=== PATIENT | female | born 1990 | race Caucasian/White ===

== ENCOUNTER 2016-12-24 14:41 | Emergency (ER) | payer BC ==
[~2016-12-24] VITALS: Ht 163.8 cm; Wt 100.3 kg
[2016-12-24 14:47] VITALS: BP 131/85
[2016-12-24] MEDS ORDERED: IBUPROFEN 400 MG TAB ONE (14:59)
--- NOTE | 2016-12-24 17:28 | NUR ---
Padmini dobbs in ED - 12/24/16 at 1733 by [email or web address] STELLA CAMARGO EVALUATING PT AT BEDSIDE.
--- NOTE | 2016-12-24 17:32 | NUR ---
6F BIB SELF C/O FEVER AND HEADACHE X 2 DAYS; PT STATES NO TRAUMA OR INJURY TO HEAD AT THIS TIME. PT STATES HAS RECENT UTI, WENT TO SEE PCP AND GIVEN CIPRO 500 MG HX: NONE RX: CIPRO 500MG. DENIES N/V/D; SKIN IS PINK/WARM/DRY; AAOX4 WITH EVEN AND STEADY GAIT; LUNGS CLEAR BL; HR EVEN AND REGULAR; PT DENIES ANY CP, SOB, OR COUGH AT THIS TIME; PATIENT STATES PAIN OF 8/10 AT THIS TIME; PATIENT POSITIONED FOR COMFORT; HOB ELEVATED; BEDRAILS UP X2; BED DOWN. ER MD MADE AWARE OF PT STATUS.
--- NOTE | 2016-12-24 17:32 | NUR ---
Patient ambulated to bed 4. RN evaluating patient at bedside.
--- NOTE | 2016-12-24 17:33 | NUR ---
ER MD DR CAMARGO EVALUATING PT AT BEDSIDE.
[2016-12-24] MEDS ORDERED: NACL 0.9% 1,000 ML IV SCH (17:34)
[2016-12-24] MEDS ORDERED: ONDANSETRON 4 MG/2 ML VIAL IVP ONE (17:35)
[2016-12-24] MEDS ORDERED: cefTRIAXone 1,000 MG in DEXT 5% MINI-BAG PLUS 50 ML IV ONE (17:35)
[2016-12-24] MEDS ORDERED: MORPHINE SULFATE 4 MG/ML SYR IVP ONE (17:35)
[2016-12-24] MEDS ORDERED: cefTRIAXone 1,000 MG VIAL ONE (17:51)
[2016-12-24 18:07] LABS: BASOPHILS # (AUTO) 0.1 K/uL (0.00-0.22); BASOPHILS % (AUTO) 1.3 % (0.0-2.0); EOSINOPHILS # (AUTO) 0.1 K/uL (0-0.4); EOSINOPHILS % (AUTO) 1.6 % (0.0-4.0); HEMOGLOBIN 12.7 g/dL (12.0-16.0); LYMPHOCYTES # (AUTO) 1.3 K/uL (2.5-16.5); LYMPHOCYTES % (AUTO) 16.3 % (20.5-51.1); MEAN CORPUSCULAR HEMOGLOBIN 27 pg (27-31); MEAN CORPUSCULAR HGB CONC 33 g/dL (33-37); MEAN CORPUSCULAR VOLUME 84 fL (80-94); MONOCYTES # (AUTO) 0.9 K/uL (0.8-1.0); MONOCYTES % (AUTO) 11.1 % (1.7-9.3); NEUTROPHILS # (AUTO) 5.8 K/uL (1.8-7.7); NEUTROPHILS % (AUTO) 69.7 % (42.2-75.2); PLATELET COUNT (AUTO) 262 K/uL (140-450); RED BLOOD CELL COUNT(AUTO) 4.65 MIL/uL (4.20-5.40); RED CELL DISTRIBUTION WIDTH 13.7 % (11.6-13.7); WHITE BLOOD COUNT (AUTO) 8.2 K/uL (4.8-10.8)
[2016-12-24 18:13] LABS: APPEARANCE,URINE CLEAR (CLEAR); BILIRUBIN,URINE NEGATIVE (NEGATIVE); BLOOD, URINE 2+ (NEGATIVE); COLOR,URINE YELLOW (YELLOW); LEUKOCYTE ESTERASE ,URINE TRACE (NEGATIVE); NITRITE, URINE POSITIVE (NEGATIVE); PROTEIN,URINE TRACE (NEGATIVE); UGLUCOSE NEGATIVE (NEGATIVE)
[2016-12-24 18:16] LABS: ANION GAP 13.6 (8-16); CALCIUM 7.9 mg/dL (8.5-10.1); CARBON DIOXIDE 26.3 mmol/L (21-32); CREATININE 0.8 mg/dL (0.6-1.3); POTASSIUM 3.9 mmol/L (3.5-5.1)
[2016-12-24 18:20] LABS: AMPHETAMINE, URINE NEG. ng/ml (NEG <=1000); BARBITURATE, URINE NEG. ng/ml (NEG <=200); BENZODIAZEPINE, URINE NEG. ng/mL (NEG <=200); CANNABINOID, URINE POS. ng/mL (NEG <=50); COCAINE, URINE NEG. ng/mL (NEG <=300); OPIATE, URINE NEG. ng/mL (NEG <=2000); PHENCYCLIDINE SCREEN,URINE NEG. ng/mL (NEG <=25)
[2016-12-24 18:21] LABS: BACTERIA,URINE 2+ /HPF (None Seen); MUCUS,URINE 3+ /LPF (None Seen)
[2016-12-24 18:23] LABS: ALBUMIN 3.6 g/dL (3.4-5.0); TOTAL BILIRUBIN 0.3 mg/dL (0.0-1.0); TOTAL PROTEIN, SERUM 7.7 g/dL (6.4-8.2)
--- NOTE | 2016-12-24 18:55 | NUR ---
Patient discharged with v/s stable. Written and verbal after care instructions given and explained. Patient alert, oriented and verbalized understanding of instructions. Ambulatory with steady gait. All questions addressed prior to discharge. ID band removed. Patient advised to follow up with PMD. Rx of TYLENOL & DOXYCYCLINE given. Patient educated on indication of medication including possible reaction and side effects. Opportunity to ask questions provided and answered.
[2016-12-24 19:00] VITALS: BP 129/60
== END 2016-12-24 18:55 | disposition home or self-care (01) ==
LOC: MED 14:41
DX: G44.209 Tension-type headache, unspecified, not intractable (principal); N30.90 Cystitis, unspecified without hematuria; F12.10 Cannabis abuse, uncomplicated
CPT/HCPCS: 36415; 80053; 80305; 81001; 81025; 82150; 83690; 84703; 85025; 87086; 96365; 96375; 99284; J0696; J2270; J2405; J7030; J7060

== ENCOUNTER 2019-02-27 11:18 | Emergency (ER) | payer BC ==
[~2019-02-27] VITALS: Ht 162.6 cm; Wt 110.8 kg
[2019-02-27 11:22] VITALS: BP 142/67
--- NOTE | 2019-02-27 11:40 | NUR ---
C/O BILATERAL LOWER BACK PAIN X 1 DAY. PAIN /. ADDS HEADACHE X THIS AM. DENIES DYSURIA, FREQUENCY, OR URGENCY. DENIES INJURY OR TRUAMA. PATIENT STATES SHE IS CURRENTLY ON HER MENSTRUAL CYCLE. VSS. AA0X4. BED IS DOWN, LOCKED, BED RAIL X 1, ERMD TO SEE PT. PMH- DENIES
--- NOTE | 2019-02-27 11:50 | NUR ---
DR RAMIREZ AT BEDSIDE
[2019-02-27] MEDS ORDERED: NACL 0.9% 1,000 ML IV ONE (12:20)
[2019-02-27] MEDS ORDERED: KETOROLAC 30 MG/ML VIAL IVP ONE (12:20)
--- NOTE | 2019-02-27 12:32 | NUR ---
LABS DRAWN BEDSIDE AND TORADOL ADMINISTERED ORDERED
[2019-02-27 12:49] LABS: BASOPHILS # (AUTO) 0.1 K/uL (0.00-0.22); BASOPHILS % (AUTO) 0.6 % (0.0-2.0); EOSINOPHILS # (AUTO) 0.2 K/uL (0-0.4); EOSINOPHILS % (AUTO) 2.6 % (0.0-4.0); HEMATOCRIT 37.4 % (36-48); HEMOGLOBIN 12.2 g/dL (12.0-16.0); LYMPHOCYTES # (AUTO) 2.8 K/uL (2.5-16.5); LYMPHOCYTES % (AUTO) 30.5 % (20.5-51.1); MEAN CORPUSCULAR HEMOGLOBIN 27 pg (27-31); MEAN CORPUSCULAR HGB CONC 33 g/dL (33-37); MEAN CORPUSCULAR VOLUME 81.4 fL (80-94); MONOCYTES # (AUTO) 0.5 K/uL (0.8-1.0); MONOCYTES % (AUTO) 5.1 % (1.7-9.3); NEUTROPHILS # (AUTO) 5.6 K/uL (1.8-7.7); NEUTROPHILS % (AUTO) 61.2 % (42.2-75.2); PLATELET COUNT (AUTO) 313 K/uL (140-450); RED BLOOD CELL COUNT(AUTO) 4.59 MIL/uL (4.20-5.40); RED CELL DISTRIBUTION WIDTH 14.8 % (11.6-13.7); WHITE BLOOD COUNT (AUTO) 9.2 K/uL (4.8-10.8)
--- NOTE | 2019-02-27 12:50 | NUR ---
VSS. AA0X4. LIGHTS TURNED OFF FOR PT COMFORT
[2019-02-27 12:55] LABS: ANION GAP 9.9 (8-16); CARBON DIOXIDE 29.7 mmol/L (21-32); CREATININE 0.7 mg/dL (0.6-1.3); POTASSIUM 3.6 mmol/L (3.5-5.1)
[2019-02-27 13:53] VITALS: BP 136/84
--- NOTE | 2019-02-27 13:53 | NUR ---
Patient discharged with v/s stable. Written and verbal after care instructions given and explained. Patient verbalized understanding. Ambulatory with steady gait. All questions addressed prior to discharge. Advised to follow up with PMD. PT GIVEN EXCUSE FOR WORK PT INSTRUCTED TO TAKE OTC IBUPROFEN AND TYLENOL FOR PAIN
== END 2019-02-27 13:53 | disposition home or self-care (01) ==
LOC: MED 11:18
DX: R51 Headache (principal); M54.9 Dorsalgia, unspecified; R10.9 Unspecified abdominal pain; F17.210 Nicotine dependence, cigarettes, uncomplicated; F12.10 Cannabis abuse, uncomplicated; Z87.2 Personal history of diseases of the skin and subcutaneous tissue
CPT/HCPCS: 36415; 80048; 81002; 81025; 85025; 96374; 99283; 99406; J1885; J7030